=== PATIENT | male | born 1985 | race African-American/Black ===

== ENCOUNTER 2017-08-24 03:27 | Emergency (ER) | payer SELFPAY ==
[~2017-08-24] VITALS: Ht 182.9 cm; Wt 104.5 kg
[2017-08-24 03:37] VITALS: TEMP 36.6; Ht 182.9 cm; Wt 104.5 kg
[2017-08-24] MEDS ORDERED: IBUP-1050 PO (03:51)
--- NOTE | 2017-08-24 03:59 | EMERGENCY ROOM VISIT NOTE ---
History Report prepared by Alec: Heidi Gould Under the Supervision of: Dr. Irene Almodovar D.O. First contact with patient: 03:33 Chief Complaint: ALCOHOL OVERDOSE Stated Complaint: ALCOHOL History of Present Illness The patient is a 32 year old male who presents to the Emergency Room with persistent alcohol intoxication starting [employer]. The patient was brought to the ED by [place] [employer] after being pulled over. No MVA or trauma. He blew a 0.290 and could barely stand for the field sobriety test. He states that he was out drinking at a bar after work. He notes that he probably had more that he should have. He also admits to using marijuana today. He has not had problems mixing alcohol and marijuana before. The marijuana he used today was not abnormal. He has not fallen. He denies any altercations or any other trauma today. He was feeling well before drinking today. He has no medical problems and is not on any medications. He does smoke. He denies any nausea. Source of History: patient, police Onset: [employer] Position: other (global) Quality: other (alcohol intoxication) Timing: other (persistent) Associated Symptoms: No nausea Review of Systems See HPI for pertinent positives & negatives. A total of 10 systems reviewed and were otherwise negative. Past Medical & Surgical Medical Problems: (1) No chronic problems Family History No pertinent family history stated. Social History Drug Use: marijuana Occupation Status: employed Current/Historical Medications Scheduled PRN Ibuprofen (Advil), 200-800 MG PO DIRECTED PRN for Headache Allergies Coded Allergies: No Known Allergies (Unverified , 08/24/17) Physical Exam Vital Signs Date Time Temp Pulse Resp B/P (MAP) Pulse Ox O2 Delivery O2 Flow Rate FiO2 08/24/17 04:01 94 18 164/96 98 08/24/17 03:37 36.6 100 18 152/87 99 Room Air Physical Exam GENERAL: smells of EtOH, alert, well appearing, well nourished, no distress, non -toxic EYE EXAM: normal conjunctiva, PERRL and EOM's grossly intact OROPHARYNX: no exudate, no erythema, lips, buccal mucosa, and tongue normal and mucous membranes are moist NECK: supple, no nuchal rigidity, no adenopathy, non-tender LUNGS: Clear to auscultation. Normal chest wall mechanics HEART: no murmurs, S1 normal and S2 normal ABDOMEN: abdomen soft, non-tender, normo-active bowel sounds, no masses, no rebound or guarding. BACK: Back is symmetrical on inspection and there is no deformity, no midline tenderness, no CVA tenderness. SKIN: no rashes and no bruising UPPER EXTREMITIES: upper extremities are grossly normal. LOWER EXTREMITIES: No pitting edema. NEURO EXAM: Normal sensorium, cranial nerves II-XII grossly intact, normal speech, no gross weakness of arms, no gross weakness of legs. Medical Decision & Procedures ED Course 0335: The patient was evaluated in room A11B. A complete history and physical exam was performed. 0355: The patient was able to walk steadily and drink some water. He was discharged into police custody. Medical Decision Differential diagnosis includes etiologies such as alcohol intoxication, toxicologic, infection, hypoglycemia, electrolyte abnormalities, cardiac sources , intracerebral event, neurologic, as well as others were entertained. Patient well-appearing here, brought in by precaution by [place] [employer] after markedly elevated PBT on scene. Police requesting evaluation of the patient as a precaution [facility]. Patient with no evidence of trauma, awake and talking, admits to alcohol and marijuana use. No damage to the vehicle to suggest an MVA. Patient tolerating by mouth here, and related here with a steady gait. Patient discharged to PD. Medication Reconcilliation Current Medication List: was personally reviewed by me Blood Pressure Screening Patient's blood pressure: Elevated blood pressure Blood pressure disposition: Elevated BP felt to be situational Impression Primary Impression: Alcohol use with intoxication Additional Impression: Marijuana abuse Scribe Attestation The scribe's documentation has been prepared under my direction and personally reviewed by me in its entirety. I confirm that the note above accurately reflects all work, treatment, procedures, and medical decision making performed by me. Departure Information Dispostion Home / Self-Care Referrals No Doctor, Assigned (PCP) Patient Instructions My [facility] Natanael Ulien Additional Instructions Please drink responsibly and a safe location. Do not drink and drive. Please establish a local family doctor for a routine health maintenance and preventative screenings. If you have any new or concerning symptoms please return the emergency room. Problem Qualifiers
[2017-08-24 04:01] VITALS: BP 164/96; PULSE 94; O2SAT 98
== END 2017-08-24 04:01 | disposition home or self-care (01) ==
LOC: C.EDB 03:28 → C.EDA 04:01
DX: F10.920 Alcohol use, unspecified with intoxication, uncomplicated (principal); F12.10 Cannabis abuse, uncomplicated

== ENCOUNTER → 2017-08-24 | Outpatient (CLI) | payer OTHER ==
[~2017-08-24] MED LIST: IBUP-1050 PO
== END | disposition home or self-care (01) ==
LOC: C.LAB 03:48
DX: Z02.83 Encounter for blood-alcohol and blood-drug test (principal)